=== PATIENT | female | born 1960 | race Caucasian/White ===

== ENCOUNTER 2018-12-18 19:54 | Emergency (ER) | payer OTHER ==
[~2018-12-18] VITALS: Ht 165.1 cm; Wt 79.4 kg
--- OUTSIDE RECORDS SUMMARY | 2018-12-18 19:58 | XMS REPORT | Summary of Care ---
Author Author [facility] Organization [facility] Address Unknown Phone Unavailable Encounter HQ Ashwini_vivian(FIN) [id number] Date(s): 11/22/15 - 11/22/15 [facility] [address] [place] [address]- [phone] Discharge Disposition: Home Attending Physician: Shakeel Moncada MD Referring Physician: Shakeel Moncada MD Vital Signs No data available for this section Problem List Condition Effective Dates Status Health Status Informant Anxiety(Confirmed) 2011 Active BSO - Bilateral 03/11/11 Active salpingo-oophorectom y(Confirmed) Cystoscopy(Confirmed 03/11/11 Active ) Exploratory 03/11/11 Active laparotomy(Confirmed ) Supracervical 03/11/11 Active hysterectomy(Confirm ed) Allergies, Adverse Reactions, Alerts Substance Reaction Severity Status NKFA Active sulfa drugs Active Medications No data available for this section Results No data available for this section Immunizations No data available for this section Procedures No data available for this section Social History Social History Type Response Assessment and Plan No data available for this section
--- OUTSIDE RECORDS SUMMARY | 2018-12-18 19:58 | XMS REPORT | Summary of Care ---
Author Organization Unknown Address Unknown Phone Unavailable Encounter HQ Ashwini_vivian(FIN) [id number] Date(s): 08/08/14 - 08/08/14 [facility] Outpatient Imaging [address] [address]- A Discharge Disposition: Home Physician Attending: Rodríguez Hardin MD Reason for Visit V82.81 - SCREEN - OSTEOP Problem List Condition Effective Dates Status Health Status Informant Anxiety(Confirmed) 2010 Active BSO - Bilateral 03/11/11 Active salpingo-oophorectom y(Confirmed) Cystoscopy(Confirmed 03/11/11 Active ) Exploratory 03/11/11 Active laparotomy(Confirmed ) Supracervical 03/11/11 Active hysterectomy(Confirm ed) Allergies, Adverse Reactions, Alerts Substance Reaction Severity Status NKFA Active sulfa drugs Active Medications No data available for this section Medications Administered During Your Visit No data available for this section Immunizations No data available for this section Social History Social History Type Response
--- OUTSIDE RECORDS SUMMARY | 2018-12-18 19:58 | XMS REPORT | Continuity of Care Document ---
Author Author [facility] Interface Address Unknown Phone Unavailable Problems Problem Status Onset Date Classification Date Reported Comments Source Encounter for screening mammogram for malignant neoplasm of breast 09/29/2017 12/30/2017 [facility] Z12.31 Active 08/25/2017 [facility] Herpes zoster 10/31/2016 Diagnosis 10/31/2016 [facility] DX:R22.2=LOCALIZED SWELLING, MASS AND RATNA Active 08/19/2016 [facility] R22.2 - "LOCALIZED SWELLING, MASS AND L" Active 08/05/2016 [facility] ROUTINE Active 11/12/2015 [facility] BSO - Bilateral salpingo-oophorectomy Active 03/11/2011 Problem 12/30/2017 [facility] Cystoscopy Active 03/11/2011 Problem 12/30/2017 [facility] Exploratory laparotomy Active 03/11/2011 Problem 12/30/2017 [facility] Supracervical hysterectomy Active 03/11/2011 Problem 12/30/2017 [facility] Anxiety Active 07/19/2010 Problem 12/30/2017 [facility] Medications Medication Details Route Status Patient Instructions Ordering Provider Order Date Source Estradiol 1 MG Oral Tablet estradiol 1 mg tablet TAKE ONE (1) TABLET(S) BY MOUTH ONCE A DAY. Active [facility] valacyclovir 1000 MG Oral Tablet [Valtrex] Valtrex 1 gram tablet Take 1 tablet 3 times a day by oral route for 7 days. Active [facility] Allergies, Adverse Reactions, Alerts Substance Category Reaction Severity Reaction type Status Date Reported Comments Source Sulfa (Sulfonamide Antibiotics) Rash Allergy to substance 10/31/2016 [facility] sulfa drugs Assertion Drug allergy Active [facility] NKFA Assertion Drug allergy Active [facility] Immunizations Immunization Date Given Site Status Last Updated Comments Source Tdap 09/16/2016 completed [facility] influenza, injectable, quadrivalent 02/17/2016 completed [facility] Results Order Name Results Value Reference Range Date Interpretation Comments Source Breast Mammo Scrn SATYA w bridget incl CAD MA Breast Mammo Scrn SATYA w bridget incl CAD MA BILATERAL DIGITAL SCREENING MAMMOGRAM 3D/2D WITH CAD: 09/22/2017 CLINICAL: /Routine. Current study was evaluated with a Computer Aided Detection (CAD) system. COMPARISON:Comparison is made to exams dated: 08/20/2016 mammogram, 11/22/2015 mammogram - [facility], 08/08/2014 mammogram, 04/11/2012 mammogram, and 11/21/2008 mammogram - [facility]. TECHNIQUE: Digital Breast Tomosynthesis was performed and utilized for Interpretation. [employer] Version 1.3 was utilized for computer aided detection. FINDINGS: The tissue of both breasts is heterogeneously dense, which could obscure detection of small masses. No significant masses, calcifications, or other findings are seen in either breast. There has been no significant interval change. IMPRESSION: NEGATIVE RECOMMENDATION:There is no mammographic evidence of malignancy. A 1 year screening mammogram is recommended.(09/23/2018) This exam was interpreted at [id number] for [facility]. Jayda gil/penriki:09/22/2017 14:24:57 Town Justice(s): Lory Pruett [facility] letter sent: BI-RADS 1/2 Dense Mammogram BI-RADS: 1 Negative 09/22/2017 - - Read by: Jayda Boswell MD Dictated Date/time: 09/22/17 14:24 Electronically Signed by: Jayda Boswell MD 09/22/17 14:24 FINAL REPORT [facility] Breast Complete Uni US Breast Complete Uni US - BREAST COMPLETE UNI US/R ULTRASOUND OF RIGHT BREAST AND RIGHT AXILLA: 08/20/2016 CLINICAL: Right axillary Lump and pain. Comparison is made to exams dated: 08/20/2016 mammogram, 11/22/2015 mammogram - [facility], 04/11/2012 mammogram, 08/08/2014 mammogram and 11/21/2008 mammogram - [facility]. Color flow and real-time ultrasound of the right breast and axilla were performed. [place] scale images of the real-time examination were reviewed. All 4 quadrants, the retroareolar region and axilla are evaluated in this exam. No abnormalities were seen sonographically in the right breast or the right axilla. IMPRESSION: NEGATIVE There is no sonographic evidence of malignancy. There is no mammographic or sonographic abnormality seen in the right axilla to correspond with the area of clinical concern and pain. This may represent perimenopausal hormonal stimulation or normal fibroglandular tissue. Return to annual mammogram screening schedule is recommended. The results were reviewed with the patient. Jayda gil/:08/20/2016 14:27:12 Town Justice: Sandie Ramirez, [facility] This exam was dictated and interpreted by [id number] for [facility]. letter sent: Normal exam Ultrasound BI-RADS: 1 Negative 08/20/2016 - - Read by: Jayda Boswell MD Dictated Date/time: 08/20/16 14:27 Electronically Signed by: Jayda Boswell MD 08/20/16 14:27 FINAL REPORT [facility] Digital Mammo DX Uni MA Digital Mammo DX Uni MA - DIGITAL MAMMO DX UNI MA/R UNILATERAL RIGHT DIGITAL DIAGNOSTIC MAMMOGRAM WITH CAD: 08/20/2016 CLINICAL: Right axillary Breast Lump and shooting pains. Current study was evaluated with a Computer Aided Detection (CAD) system. Comparison is made to exams dated: 11/22/2015 mammogram - [facility], 08/08/2014 mammogram, 04/11/2012 mammogram and 11/21/2008 mammogram - [facility]. The tissue of the right breast is heterogeneously dense, which could obscure detection of small masses. No significant masses, calcifications, or other findings are seen in the breast. There has been no significant interval change. IMPRESSION: INCOMPLETE: NEEDS ADDITIONAL IMAGING EVALUATION There is no mammographic abnormality seen in the right axilla to correspond with the area of clinical concern and pain, however ultrasound is recommended. The results were reviewed with the patient. SUMMARY: Ultrasound will be performed at this time; please see dedicated separate report. Jayda gil/:08/20/2016 14:20:46 Town Justice: Juanis Bautista, [facility] This exam was dictated and interpreted by [id number] for [facility]. Mammogram BI-RADS: 0 Indeterminate 08/20/2016 - - Read by: Jayda Boswell MD Dictated Date/time: 08/20/16 14:20 Electronically Signed by: Jayda Boswell MD 08/20/16 14:20 FINAL REPORT [facility] Digital Mammo Screen Satya MA w bridget Digital Mammo Screen Satya MA w bridget - DIGITAL MAMMO SCREEN SATYA MA W BRIDGET BILATERAL DIGITAL SCREENING MAMMOGRAM 3D/2D WITH CAD: 11/22/2015 CLINICAL: Routine. 2D digital mammographic images and 3D digital tomosynthesis images were obtained in the CC and MLO projections. Current study was evaluated with a Computer Aided Detection (CAD) system. Comparison is made to exams dated: 08/08/2014 mammogram, 04/11/2012 mammogram and 11/21/2008 mammogram - [facility]. The tissue of both breasts is heterogeneously dense, which could obscure detection of small masses. No significant masses, calcifications, or other findings are seen in either breast. There has been no significant interval change. IMPRESSION: NEGATIVE There is no mammographic evidence of malignancy. A 1 year screening mammogram is recommended. Jayda meekt/penrad:11/25/2015 08:02:35 Town Justice: Juanis Bautista, [facility] This exam was dictated and interpreted by [id number] for [facility]. letter sent: Normal exam Mammogram BI-RADS: 1 Negative 11/22/2015 - - Read by: Jayda Boswell MD Dictated Date/time: 11/25/15 08:02 Electronically Signed by: Jayda Boswell MD 11/25/15 08:02 FINAL REPORT [facility] Vital Signs Vital Sign Value Date Comments Source Diastolic (mm Hg) 70 10/31/2016 [facility] Height 65 10/31/2016 [facility] Systolic (mm Hg) 120 10/31/2016 [facility] Weight 175 10/31/2016 [facility] Encounters Location Location Details Encounter Type Encounter Number Reason For Visit Attending Provider ADM Date DC Date Status Source [facility] Outpatient Imaging [facility] Outpatient [id number] Rodríguez Hardin 08/08/2014 08/09/2014 [facility] Outpatient [id number] Shaekel Moncada 11/22/2015 11/23/2015 [facility] Outpatient [id number] Shakeel Moncada 08/20/2016 08/21/2016 [facility] [place] - [facility] - [id number] Diomedes Montoya, GAMMA FACILITIES OPERATOR-C: [address], [place] [address], Ph. [phone] [id number] Diomedes Montoya 10/31/2016 [facility] [id number] Shakeel Moncada 09/22/2017 09/23/2017 [facility] Procedures Procedure Code Date Perfomer Comments Source [facility] Hysterectomy [facility]
--- OUTSIDE RECORDS SUMMARY | 2018-12-18 19:58 | XMS REPORT | Encounter Summary ---
Author Organization Unknown Address [address] [place] [address] Phone [phone] Reason for Visit Medical Complaint Instructions 1. Herpes zoster shingles: care instructions Valtrex 1 gram tablet Discussion Note: None recorded. Plan of Care Patient Instructions take medication as directed. follow up pcp Reminders Provider Appointments None recorded. Lab None recorded. Referral None recorded. Procedures None recorded. Surgeries None recorded. Imaging None recorded. Medications Name Start Date estradiol 1 mg tablet TAKE ONE (1) TABLET(S) BY MOUTH ONCE A DAY. Valtrex 1 gram tablet Take 1 tablet 3 times a day by oral route for 7 days. Medications Administered None recorded. Vitals Height Weight BMI Blood Pressure 5 ft 5 in 175 lbs 29.1 120/70 Lab Results None recorded. Allergies Code Code System Name Reaction Severity Onset Sulfa (Sulfonamide Antibiotics) Rash Problems None recorded. Procedures Date Name Performed by Information not available Hysterectomy Information not available Vaccine List Vaccine Type influenza, injectable, quadrivalent 02/16/2016 Tdap 09/15/2016 Social History Smoking Status Never Smoker Past Encounters 10/31/2016 Herpes Zoster Diomedes Montoya [facility]: [address] [facility] [place]ud [address], Ph. History of Present Illness Hhgq-Yjdzqef-Ejrso-Skin Lesion-Bite 1 Reported By: Patient HPI: Location: legs. Quality: itchy, painful. Severity: mild, moderate. Duration: has noted for <1 week. Onset/Timing: abrupt onset. Context: no new detergents or skin products, no one else with similar rash, no sting or bite. Aggravating factors: nothing makes it worse. Associated Symptoms: no fever/chills, no muscle aches, no headache, no cold symptoms, no nausea, no vomiting, no diarrhea, no urinary symptoms Review of Systems:ROS as noted in the HPI Review of Systems Basic Reported By: Patient Physical Exam Adult Basic, Adult Female Complete Reported By: Patient Constitutional: General Appearance: healthy-appearing. Ambulation: ambulating normally Psychiatric: Mental Status: active and alert Lungs: Respiratory effort: no dyspnea, no tachypnea, no use of accessory muscles, no intercostal retractions. Auscultation: breath sounds normal Cardiovascular: Heart Auscultation: RRR, no murmurs Skin: Inspection and palpation: rash; vesicular rash on right leg. goes up to buttocks
--- OUTSIDE RECORDS SUMMARY | 2018-12-18 19:58 | XMS REPORT | Summary of Care ---
Author Author [facility] Organization [facility] Address Unknown Phone Unavailable Encounter HQ Encntr_vivian(FIN) [id number] Date(s): 09/22/17 - 09/22/17 [facility] [address] [place] [address]- Encounter Diagnosis Encounter for screening mammogram for malignant neoplasm of breast (Final) - 09/28/17 Discharge Disposition: Home or Self Care Attending Physician: Shakeel Moncada MD Referring Physician: Shakeel Moncada MD Vital Signs No data available for this section Problem List Condition Effective Dates Status Health Status Informant Anxiety(Confirmed) 2010 Active BSO - Bilateral 03/11/11 Active salpingo-oophorectom y(Confirmed) Cystoscopy(Confirmed 03/11/11 Active ) Exploratory 03/11/11 Active laparotomy(Confirmed ) Supracervical 03/11/11 Active hysterectomy(Confirm ed) Allergies, Adverse Reactions, Alerts Substance Reaction Severity Status sulfa drugs Active NKFA Active Medications No data available for this section Results No data available for this section Immunizations No data available for this section Procedures No data available for this section Social History Social History Type Response Assessment and Plan No data available for this section
--- OUTSIDE RECORDS SUMMARY | 2018-12-18 19:58 | XMS REPORT | Summary of Care ---
Author Author [facility] Organization [facility] Address Unknown Phone Unavailable Encounter HQ Ashwini_vivian(FIN) [id number] Date(s): 08/20/16 - 08/20/16 [facility] [address] [place] [address]- Discharge Disposition: Home or Self Care Attending [...]
== END 2018-12-18 22:06 | disposition home or self-care (01) ==
LOC: ER 19:54
DX: M25.572 Pain in left ankle and joints of left foot (principal); I80.02 Phlebitis and thrombophlebitis of superficial vessels of left lower extremity
CPT/HCPCS: 93971; 99282